=== PATIENT | male | born 1935 | race Caucasian/White ===

== ENCOUNTER 2019-10-24 12:55 | Emergency (ER) | payer MEDICARE, OTHER ==
[2019-10-24] MEDS ORDERED: Sodium Chloride 0.9% 10 ML Syringe FLUSH PRN (13:14)
--- NOTE | 2019-10-24 13:58 | EDM.PDOC ---
ED HPI GENERAL MEDICAL PROBLEM - General Chief Complaint: General Stated Complaint: ER Time Seen by Provider: 10/24/19 13:15 Source of Information: Reports: Patient History Limitations: Reports: No Limitations - History of Present Illness INITIAL COMMENTS - FREE TEXT/NARRATIVE: Pt. presents to ER with complaints of L lower extremity swelling, from his ankle to his buttock. 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 He states that he has been experiencing swelling to the area and occasional fever for the past 2 days. Denies any falls or trauma to the extremity since the surgery. He is currently anticoagulated with xaralto. Pt. denies any history of chest pain or shortness of breath. No nausea, vomiting , or diarrhea. Denies any edema to the opposite lower extremity. The incision was covered with a dressing that has not yet been removed since surgery. Plan is to remove this at a clinic appointment next week. Onset: Today Onset Date: 10/21/19 Location: Reports: Lower Extremity, Left Quality: Reports: Pressure Treatments CALL CENTER CONSULTANT: Reports: Other Medication(s) Other Treatments CALL CENTER CONSULTANT: Sleepy Eye Left Knee Pain Score (Numeric/FACES): 2 - Related Data Allergies Allergy/AdvReac Type Severity Reaction Status Date / Time amoxicillin [From Augmentin] Allergy Cannot Verified 10/24/19 13:48 Remember aspirin Allergy Other Verified 10/24/19 13:48 clavulanic acid Allergy Cannot Verified 10/24/19 13:48 [From Augmentin] Remember erythromycin base Allergy Cannot Verified 10/24/19 13:48 Remember latex Allergy Other Verified 10/24/19 13:48 Sulfa (Sulfonamide Allergy Cannot Verified 10/24/19 13:48 Antibiotics) Remember sulfamethoxazole Allergy Numbness Verified 10/24/19 13:48 [From Septra] trimethoprim [From Septra] Allergy Numbness Verified 10/24/19 13:48 environmental Allergy Cannot Uncoded 10/24/19 13:48 Remember Home Meds: Home Meds Albuterol [Ventolin HFA] 2 puff INH Q4H PRN 09/19/16 [History] Fish Oil/Burton-3 Fatty Acids [Fish Oil] 1,000 mg PO DAILY 09/19/16 [History] Glucosam/Chondr/Collagn/Hyalur [Glucosamine & Chondroitin Cap] 1 cap PO TID 04/27 [History] Ibuprofen 200 mg PO TID PRN 09/19/16 [History] NIFEdipine [Nifedipine ER] 30 mg PO ASDIRECTED 09/19/16 [History] Nitroglycerin [Nitrostat] 0.4 mg SL Q5M 09/19/16 [History] Terbutaline Sulfate 5 mg PO TID 09/19/16 [History] Acetaminophen [Tylenol Arthritis] 650 mg PO Q8H 10/24/19 [History] Acetaminophen/HYDROcodone [Sleepy Eye 325-5 MG] 1 tab PO Q6H PRN 10/24/19 [History] Albuterol/Ipratropium [Combivent Respimat] 6 puff IH Q24H 10/24/19 [History] Celecoxib 100 mg PO BID 10/24/19 [History] Denosumab [Prolia] 60 mg SUBCUT Q6M 10/24/19 [History] Docusate Sodium [Colace] 100 mg PO DAILY 10/24/19 [History] Fluticasone Propionate [Flonase] 16 gm NS BID 10/24/19 [History] Furosemide [Lasix] 20 mg PO DAILY 10/24/19 [History] Gabapentin [Neurontin] 100 mg PO TID 10/24/19 [History] Oxybutynin 5 mg PO BID 10/24/19 [History] Rivaroxaban [Xarelto] 10 mg PO DAILY 10/24/19 [History] Sennosides/Docusate Sodium [Senna-Docusate Sodium Tablet] 1 each PO BID [History] Triamcinolone Acetonide [Kenalog 0.1% Crm] 1 g TOP BID PRN 10/24/19 [History] Past Medical History HEENT History: Reports: Allergic Rhinitis, Cataract Other HEENT History: LEUKOPLAKIA OF ORAL CAVITY Cardiovascular History: Reports: Angina, High Cholesterol, Hypertension Respiratory History: Reports: Asthma Other Respiratory History: PULMONARY NODULE Gastrointestinal History: Reports: Colon Polyp, Diverticulosis, Gastritis, Hemorrhoids Other Gastrointestinal History: INGUINAL HERNIA Other Genitourinary History: ERECTILE DYSFUNCTION Musculoskeletal History: Reports: Osteoarthritis Other Musculoskeletal History: 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 HX OF MASTOIDITIS. 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 Endocrine/Metabolic History: Reports: Other (See Below) Other Endocrine/Metabolic History: PREDIABETIC Oncologic (Cancer) History: Reports: Prostate Other Dermatologic History: LIPOMA - Past Surgical History GI Surgical History: Reports: Colonoscopy Other GI Surgeries/Procedures: HX POLYPS ED ROS GENERAL - Review of Systems Review Of Systems: See Below Constitutional: Reports: No Symptoms HEENT: Reports: No Symptoms Respiratory: Reports: No Symptoms Endocrine: Reports: No Symptoms GI/Abdominal: Reports: No Symptoms : Reports: No Symptoms Musculoskeletal: Reports: Leg Pain, Joint Pain, Joint Swelling Skin: Reports: Change in Color Neurological: Reports: No Symptoms Psychiatric: Reports: No Symptoms Hematologic/Lymphatic: Reports: No Symptoms Immunologic: Reports: No Symptoms ED EXAM, GENERAL - Physical Exam Exam: See Below Exam Limited By: No Limitations General Appearance: Alert, WD/WN, No Apparent Distress Head: Atraumatic, Normocephalic Neck: Normal Inspection, Supple, Non-Tender, Full Range of Motion Respiratory/Chest: No Respiratory Distress, Lungs Clear, Normal Breath Sounds, No Accessory Muscle Use, Chest Non-Tender Cardiovascular: Normal Peripheral Pulses, Regular Rate, Rhythm, No Edema, No Gallop, No JVD, No Murmur, No Rub GI/Abdominal: Normal Bowel Sounds, Soft, Non-Tender, No Organomegaly, No Distention, No Abnormal Bruit, No Mass (Male) Exam: Deferred Rectal (Males) Exam: Deferred Back Exam: Normal Inspection, Full Range of Motion Extremities: Normal Inspection, Normal Capillary Refill, Joint Swelling, Leg Pain, Increased Warmth, Redness Neurological: Alert, Oriented, CN II-XII Intact, Normal Cognition, Normal Gait, Normal Reflexes, No Motor/Sensory Deficits Psychiatric: Normal Affect, Normal Mood Skin Exam: Warm, Dry, Intact, Normal Color, No Rash Lymphatic: No Adenopathy Course - Vital Signs Last Recorded V/S: Last Vital Signs Temp 37.2 C 10/24/19 14:44 Pulse 63 10/24/19 14:44 Resp 18 10/24/19 14:44 BP 125/60 10/24/19 14:44 Pulse Ox 95 10/24/19 14:44 - Orders/Labs/Meds Orders: Active Orders 24 hr Category Date Time Status CULTURE BLOOD [BC] Stat Lab 10/24/19 13:53 Received CULTURE BLOOD [BC] Stat Lab 10/24/19 14:00 Received Sodium Chloride 0.9% [Saline Flush] Med 10/24/19 13:14 Active 10 ml FLUSH ASDIRECTED PRN Blood Culture x2 Reflex Set [OM.PC] Stat Oth 10/24/19 13:15 Ordered Peripheral IV Insertion Adult [OM.PC] Routine Oth 10/24/19 13:15 Ordered Medication Orders Sodium Chloride (Saline Flush) 10 ml FLUSH ASDIRECTED PRN PRN Reason: Keep Vein Open Labs: Laboratory Tests 10/24/19 10/24/19 10/24/19 Range/Units 13:53 13:53 13:53 WBC 4.3 (4.0-10.0) x10^3/uL RBC 3.29 L (4.5-6.0) x10^6/uL Hgb 9.9 L D (14.0-18.0) g/dL Hct 30.0 L (40.0-52.0) % MCV 91.2 (78.0-93.0) fL MCH 30.1 (26.0-32.0) pg MCHC 33.0 (32.0-36.0) g/dL RDW Coeff of Sanju 13.7 (10.0-15.0) % Plt Count 244 (130-400) x10^3/uL Neut % (Auto) 64.0 (50.0-80.0) % Lymph % (Auto) 17.4 L (25.0-50.0) % [place] % (Auto) 8.5 (2.0-11.0) % Eos % (Auto) 9.6 H (0.0-4.0) % Baso % (Auto) 0.5 (0.2-1.2) % PT 10.3 (10.0-12.8) SEC INR 0.9 L (2.0-3.5) D-Dimer, Quantitative (<=0.58) mg/LFEU Sodium 140 (136-145) mmol/L Potassium 4.4 (3.5-5.1) mmol/L Chloride 104 (98-107) mmol/L Carbon Dioxide 28 (21-32) mmol/L Anion Gap 12.4 (10-20) mmol/L BUN 20 H (7-18) mg/dL Creatinine 0.9 (0.70-1.30) mg/dL Est Cr Clr Drug Dosing 68.26 mL/min Estimated GFR (MDRD) > 60 Glucose 126 H (74-106) mg/dL Lactic Acid (0.4-2.0) mmol/L Calcium 8.6 (8.5-10.1) mg/dL Corrected Calcium 9.64 (8.5-10.1) mg/dL Magnesium 2.0 (1.8-2.4) mg/dL Total Bilirubin 0.7 (0.2-1.0) mg/dL AST 24 (15-37) U/L ALT 29 (16-63) U/L Alkaline Phosphatase 73 (46-116) U/L C-Reactive Protein 5.3 H (<=0.9) mg/dL Total Protein 6.3 L (6.4-8.2) g/dL Albumin 2.7 L (3.4-5.0) g/dL Globulin 3.6 Albumin/Globulin Ratio 0.75 10/24/19 10/24/19 Range/Units 13:53 13:53 WBC (4.0-10.0) x10^3/uL RBC (4.5-6.0) x10^6/uL Hgb (14.0-18.0) g/dL Hct (40.0-52.0) % MCV (78.0-93.0) fL MCH (26.0-32.0) pg MCHC (32.0-36.0) g/dL RDW Coeff of Sanju (10.0-15.0) % Plt Count (130-400) x10^3/uL Neut % (Auto) (50.0-80.0) % Lymph % (Auto) (25.0-50.0) % [place] % (Auto) (2.0-11.0) % Eos % (Auto) (0.0-4.0) % Baso % (Auto) (0.2-1.2) % PT (10.0-12.8) SEC INR (2.0-3.5) D-Dimer, Quantitative 2.15 H (<=0.58) mg/LFEU Sodium (136-145) mmol/L Potassium (3.5-5.1) mmol/L Chloride (98-107) mmol/L Carbon Dioxide (21-32) mmol/L Anion Gap (10-20) mmol/L BUN (7-18) mg/dL Creatinine (0.70-1.30) mg/dL Est Cr Clr Drug Dosing mL/min Estimated GFR (MDRD) Glucose (74-106) mg/dL Lactic Acid 1.4 (0.4-2.0) mmol/L Calcium (8.5-10.1) mg/dL Corrected Calcium (8.5-10.1) mg/dL Magnesium (1.8-2.4) mg/dL Total Bilirubin (0.2-1.0) mg/dL AST (15-37) U/L ALT (16-63) U/L Alkaline Phosphatase (46-116) U/L C-Reactive Protein (<=0.9) mg/dL Total Protein (6.4-8.2) g/dL Albumin (3.4-5.0) g/dL Globulin Albumin/Globulin Ratio Meds: Medications Generic Name Dose Route Start Last Admin Trade Name Freq PRN Reason Stop Dose Admin Sodium Chloride 10 ml 10/24/19 13:14 Saline Flush FLUSH ASDIRECTED PRN Keep Vein Open Departure - Departure Time of Disposition: 14:53 Disposition: DC/Tfer to [facility] Clinical Impression: Post op infection - Discharge Information Referrals: Joanie Roche DO [Primary Care Provider] - Forms: ED Department Discharge Sepsis Event Note - Evaluation Sepsis Screening Result: No Definite Risk - Focused Exam Vital Signs: Vital Signs Temp Pulse Resp BP Pulse Ox 10/24/19 14:44 37.2 C 63 18 125/60 95 10/24/19 13:15 37.3 C 59 L 18 122/56 L 94 L Date Exam was Performed: 10/24/19 Time Exam was Performed: 14:50 - My Orders Last 24 Hours: My Active Orders 10/24/19 13:14 Sodium Chloride 0.9% [Saline Flush] 10 ml FLUSH ASDIRECTED PRN 10/24/19 13:15 Blood Culture x2 Reflex Set [OM.PC] Stat Peripheral IV Insertion Adult [OM.PC] Routine 10/24/19 13:53 CULTURE BLOOD [BC] Stat 10/24/19 14:00 CULTURE BLOOD [BC] Stat - Assessment/Plan Last 24 Hours: My Active Orders 10/24/19 13:14 Sodium Chloride 0.9% [Saline Flush] 10 ml FLUSH ASDIRECTED PRN 10/24/19 13:15 Blood Culture x2 Reflex Set [OM.PC] Stat Peripheral IV Insertion Adult [OM.PC] Routine 10/24/19 13:53 CULTURE BLOOD [BC] Stat 10/24/19 14:00 CULTURE BLOOD [BC] Stat Plan: Travel to [facility] ER in [place]. You will need an ultrasound of the leg and will be evaluated by Dr. Watkins.
[2019-10-24 14:28] LABS: ANION GAP 12.4 mmol/L (10-20); CHLORIDE,CL 104 mmol/L (98-107); SODIUM,NA 140 mmol/L (136-145)
[2019-10-24 14:45] VITALS: BP 125/60; PULSE 63
== END 2019-10-24 15:10 | disposition short-term general hospital (02) ==
LOC: VM.ED 12:55
DX: T81.49XA Infection following a procedure, other surgical site, initial encounter (principal); I10 Essential (primary) hypertension; E78.00 Pure hypercholesterolemia, unspecified; J45.909 Unspecified asthma, uncomplicated; M19.90 Unspecified osteoarthritis, unspecified site; Z86.73 Personal history of transient ischemic attack (TIA), and cerebral infarction without residual deficits; Z96.652 Presence of left artificial knee joint; Z79.899 Other long term (current) drug therapy; Z79.01 Long term (current) use of anticoagulants; Z88.8 Allergy status to other drugs, medicaments and biological substances; Z88.1 Allergy status to other antibiotic agents; Z88.2 Allergy status to sulfonamides; Z91.040 Latex allergy status; Z91.048 Other nonmedicinal substance allergy status
CPT/HCPCS: 36415; 80053; 83605; 83735; 85025; 85379; 85610; 86140; 87040; 99284; 99284-GF

== ENCOUNTER 2022-06-13 08:20 | Day surgery (SDC) | payer MEDICARE, OTHER ==
[~2022-06-13 08:20] MED LIST: Lactated Ringers 1,000 ML IV SCH; Sodium Chloride 0.9% 10 ML Syringe FLUSH PRN
[2022-06-13] MEDS ORDERED: Propofol 200 MG/20 ML SDV ONE ×2 (09:29→10:57)
[2022-06-13] MEDS ORDERED: fentaNYL 100 MCG/2 ML SDV ONE (09:30)
[2022-06-13 11:49] VITALS: BP 173/65; PULSE 51
== END 2022-06-13 12:53 | disposition home or self-care (01) ==
LOC: VM.SDS 08:20
PROVIDERS: ATTEND Family Medicine
DX: Z12.11 Encounter for screening for malignant neoplasm of colon (principal); D12.0 Benign neoplasm of cecum; K57.30 Diverticulosis of large intestine without perforation or abscess without bleeding; K59.09 Other constipation; I10 Essential (primary) hypertension; J45.909 Unspecified asthma, uncomplicated; E78.5 Hyperlipidemia, unspecified; E11.9 Type 2 diabetes mellitus without complications; D64.9 Anemia, unspecified; Z98.890 Other specified postprocedural states; Z86.010 Personal history of colon polyps; Z96.652 Presence of left artificial knee joint; Z79.899 Other long term (current) drug therapy; Z88.2 Allergy status to sulfonamides; Z91.040 Latex allergy status; Z88.6 Allergy status to analgesic agent; Z88.1 Allergy status to other antibiotic agents; Z88.0 Allergy status to penicillin
CPT/HCPCS: 00811; J2704; J3010; J7120

== ENCOUNTER 2023-01-11 08:57 | Emergency (ER) | payer MEDICARE ==
[2023-01-11 18:16] VITALS: BP 170/72; PULSE 58
== END 2023-01-11 09:55 | disposition home or self-care (01) ==
LOC: VM.ED 08:57
DX: L25.9 Unspecified contact dermatitis, unspecified cause (principal); E78.00 Pure hypercholesterolemia, unspecified; I10 Essential (primary) hypertension; J45.909 Unspecified asthma, uncomplicated; Z86.73 Personal history of transient ischemic attack (TIA), and cerebral infarction without residual deficits; Z88.0 Allergy status to penicillin; Z88.8 Allergy status to other drugs, medicaments and biological substances; Z91.040 Latex allergy status; Z88.2 Allergy status to sulfonamides
CPT/HCPCS: 99283

== ENCOUNTER 2024-04-12 13:36 | Emergency (ER) | payer MEDICARE ==
[2024-04-12] MEDS ORDERED: cefTRIAXone 1 GM, Lidocaine 1% 2.1 ML IM ONE (14:13)
[2024-04-12] MEDS: cefTRIAXone 1 GM, Lidocaine 1% 2.1 ML IM ONE (14:28)
[2024-04-12 15:55] VITALS: BP 162/76; PULSE 55
== END 2024-04-12 14:42 | disposition home or self-care (01) ==
LOC: VM.ED 13:36
DX: L03.116 Cellulitis of left lower limb (principal); I10 Essential (primary) hypertension; J45.909 Unspecified asthma, uncomplicated; Z86.73 Personal history of transient ischemic attack (TIA), and cerebral infarction without residual deficits; Z95.1 Presence of aortocoronary bypass graft; Z79.899 Other long term (current) drug therapy; Z88.2 Allergy status to sulfonamides; Z88.8 Allergy status to other drugs, medicaments and biological substances; Z88.1 Allergy status to other antibiotic agents; Z91.040 Latex allergy status; Z88.6 Allergy status to analgesic agent
CPT/HCPCS: 96372; 99283; 99284; J0696; J3490

== ENCOUNTER 2024-04-29 16:46 | Inpatient (IN) | payer MEDICARE ==
[2024-04-29 17:27] LABS: BASOPHILS PERCENT AUTO 0.2 % (0.2-1.2); EOSINOPHILS ABSOLUTE AUTO 0.2 x10^3/uL (0.0-0.5); EOSINOPHILS PERCENT AUTO 1.4 % (0.0-4.0); HEMATOCRIT 35.8 % (40.0-52.0); HEMOGLOBIN 12.2 g/dL (14.0-18.0); IMMATURE GRAN ABSOLUTE AUTO 0.02 x10^3/uL (0.00-0.07); LYMPHOCYTES ABSOLUTE AUTO 0.6 x10^3/uL (1.0-4.8); LYMPHOCYTES PERCENT AUTO 5.5 % (25.0-50.0); MEAN CORPUSCULAR HEMOGLOBIN 32.4 pg (26.0-32.0); MEAN CORPUSCULAR HGB CONC 34.1 g/dL (32.0-36.0); MEAN CORPUSCULAR VOLUME 95.2 fL (78.0-93.0); MONOCYTES ABSOLUTE AUTO 0.6 x10^3/uL (0.0-0.8); MONOCYTES PERCENT AUTO 5.3 % (2.0-11.0); NEUTROPHILS ABSOLUTE AUTO 9.2 x10^3/uL (1.8-7.7); NEUTROPHILS PERCENT AUTO 87.4 % (50.0-80.0); RED BLOOD CELL COUNT 3.76 x10^6/uL (4.5-6.0); WHITE BLOOD CELL COUNT,WBC 10.5 x10^3/uL (4.0-10.0)
[2024-04-29 17:41] LABS: PLATELET COUNT,PLT 167 x10^3/uL (130-400)
[2024-04-29 17:44] LABS: A/G RATIO 0.97; ALBUMIN 3.2 g/dL (3.4-5.0); BILIRUBIN TOTAL 0.9 mg/dL (0.2-1.0); CREATININE 1.1 mg/dL (0.70-1.30); EST CRCL DRUG DOSING (CG) 55.01 mL/min; POTASSIUM,K 3.9 mmol/L (3.5-5.1); PROTEIN TOTAL,TP 6.5 g/dL (6.4-8.2)
[2024-04-29 17:45] LABS: ANION GAP 11.9 mmol/L (5-15)
[2024-04-29 17:58] LABS: APPEARANCE,URINE CLEAR (CLEAR); BILIRUBIN,URINE NEGATIVE (NEGATIVE); COLOR,URINE LIGHT YELLOW (YELLOW); GLUCOSE,URINE 500 mg/dL (NEGATIVE); KETONES,URINE NEGATIVE (NEGATIVE); LEUKOCYTE ESTERASE,URINE NEGATIVE (NEGATIVE); NITRITE,URINE NEGATIVE (NEGATIVE); OCCULT BLOOD,URINE TRACE-INTACT (NEGATIVE); PROTEIN,URINE NEGATIVE (NEGATIVE); UROBILINOGEN,URINE 0.2 EU/dL (0.2)
[2024-04-29 18:00] LABS: BACTERIA,URINE OCCASIONAL /HPF (NOT SEEN); MUCUS,URINE OCCASIONAL /LPF (NOT SEEN); RBC,URINE 0-5 /HPF (NOT SEEN); WBC,URINE 0-5 /HPF (NOT SEEN)
[2024-04-29] MEDS: Iopamidol 612 MG/ML 100 ML Bottle IVPUSH ONE (18:29)
[2024-04-29] MEDS ORDERED: Nitroglycerin 0.4 MG Tab.SL SL PRN (21:00)
[2024-04-29] MEDS: Acetaminophen 650 MG Tab.ER PO SCH (23:33)
[2024-04-29] MEDS: Sodium Chloride 0.9% 1,000 ML IV SCH (23:35)
[2024-04-30] MEDS: LORazepam 0.5 MG Tab PO PRN (00:19)
[2024-04-30] MEDS: Heparin Sodium 5,000 Units/ML Vial SUBCUT SCH (03:47)
[2024-04-30] MEDS: Magnesium Hydroxide 400 MG/5 ML Susp 30 ML Cup PO ONE (03:47)
[2024-04-30] MEDS: Bisacodyl 10 MG Supp RECTAL ONE (03:47)
[2024-04-30] MEDS: Furosemide 20 MG Tab PO SCH (03:48)
[2024-04-30] MEDS: NIFEdipine 30 MG Tab.ER PO SCH (03:48)
[2024-04-30] MEDS: Gabapentin 100 MG Cap PO SCH (03:48)
[2024-04-30] MEDS: Oxybutynin 5 MG Tab PO SCH (03:48)
[2024-04-30 07:17] LABS: BASOPHILS PERCENT AUTO 0.3 % (0.2-1.2); EOSINOPHILS ABSOLUTE AUTO 0.1 x10^3/uL (0.0-0.5); EOSINOPHILS PERCENT AUTO 1.3 % (0.0-4.0); HEMATOCRIT 34.3 % (40.0-52.0); HEMOGLOBIN 11.9 g/dL (14.0-18.0); IMMATURE GRAN ABSOLUTE AUTO 0.01 x10^3/uL (0.00-0.07); LYMPHOCYTES ABSOLUTE AUTO 0.7 x10^3/uL (1.0-4.8); LYMPHOCYTES PERCENT AUTO 9.8 % (25.0-50.0); MEAN CORPUSCULAR HEMOGLOBIN 32.8 pg (26.0-32.0); MEAN CORPUSCULAR HGB CONC 34.7 g/dL (32.0-36.0); MEAN CORPUSCULAR VOLUME 94.5 fL (78.0-93.0); MONOCYTES ABSOLUTE AUTO 0.5 x10^3/uL (0.0-0.8); MONOCYTES PERCENT AUTO 6.7 % (2.0-11.0); NEUTROPHILS ABSOLUTE AUTO 6.1 x10^3/uL (1.8-7.7); NEUTROPHILS PERCENT AUTO 81.8 % (50.0-80.0); PLATELET COUNT,PLT 150 x10^3/uL (130-400); RED BLOOD CELL COUNT 3.63 x10^6/uL (4.5-6.0); WHITE BLOOD CELL COUNT,WBC 7.4 x10^3/uL (4.0-10.0)
[2024-04-30 07:35] LABS: A/G RATIO 0.82; ALBUMIN 3.1 g/dL (3.4-5.0); BILIRUBIN TOTAL 0.7 mg/dL (0.2-1.0); C-REACTIVE PROTEIN 6.15 mg/dL (<=0.50); CALCIUM 8.6 mg/dL (8.5-10.1); EST CRCL DRUG DOSING (CG) 60.51 mL/min; MAGNESIUM 1.8 mg/dL (1.8-2.4); POTASSIUM,K 3.8 mmol/L (3.5-5.1); PROTEIN TOTAL,TP 6.9 g/dL (6.4-8.2)
[2024-04-30 07:38] LABS: ANION GAP 13.8 mmol/L (5-15)
[2024-04-30] MEDS: Furosemide 40 MG Tab PO SCH (09:04)
[2024-04-30] MEDS: Docusate Sodium 100 MG Cap PO SCH (09:10)
[2024-04-30] MEDS: Empagliflozin 10 MG Tab PO SCH (09:10)
[2024-04-30] MEDS ORDERED: Enoxaparin 40 MG/0.4 ML Syringe SUBCUT SCH (12:00)
[2024-04-30] MEDS ORDERED: Albuterol/Ipratropium 3.0-0.5 MG/3 ML Neb Soln NEB PRN (13:15)
[2024-04-30] MEDS ORDERED: Polyethylene Glycol 3350 Powder 17 GM Packet PO SCH (13:15)
[2024-04-30] MEDS: Sennosides/Docusate Sodium 50-8.6 MG Tab PO SCH (20:57)
[2024-04-30] MEDS: Formoterol/Mometasone 200-5 MCG 13 GM Inhaler INH SCH (20:57)
[2024-04-30] MEDS ORDERED: Gabapentin 100 MG Cap PO SCH (21:00)
[2024-04-30] MEDS: Nystatin Crm 30 GM Tube TOP SCH (21:00)
[2024-05-01] MEDS: Acetaminophen 325 MG Tab PO PRN (04:50)
[2024-05-01 08:17] LABS: BASOPHILS PERCENT AUTO 0.4 % (0.2-1.2); EOSINOPHILS ABSOLUTE AUTO 0.1 x10^3/uL (0.0-0.5); EOSINOPHILS PERCENT AUTO 1.8 % (0.0-4.0); HEMATOCRIT 35.5 % (40.0-52.0); HEMOGLOBIN 12.2 g/dL (14.0-18.0); IMMATURE GRAN ABSOLUTE AUTO 0.01 x10^3/uL (0.00-0.07); LYMPHOCYTES PERCENT AUTO 18.9 % (25.0-50.0); MEAN CORPUSCULAR HEMOGLOBIN 32.6 pg (26.0-32.0); MEAN CORPUSCULAR HGB CONC 34.4 g/dL (32.0-36.0); MEAN CORPUSCULAR VOLUME 94.9 fL (78.0-93.0); MONOCYTES ABSOLUTE AUTO 0.6 x10^3/uL (0.0-0.8); MONOCYTES PERCENT AUTO 10.1 % (2.0-11.0); NEUTROPHILS ABSOLUTE AUTO 3.7 x10^3/uL (1.8-7.7); NEUTROPHILS PERCENT AUTO 68.6 % (50.0-80.0); PLATELET COUNT,PLT 158 x10^3/uL (130-400); RED BLOOD CELL COUNT 3.74 x10^6/uL (4.5-6.0); WHITE BLOOD CELL COUNT,WBC 5.4 x10^3/uL (4.0-10.0)
[2024-05-01 08:39] LABS: A/G RATIO 0.81; ALBUMIN 2.9 g/dL (3.4-5.0); BILIRUBIN TOTAL 0.5 mg/dL (0.2-1.0); CALCIUM 8.6 mg/dL (8.5-10.1); CREATININE 0.9 mg/dL (0.70-1.30); EST CRCL DRUG DOSING (CG) 67.23 mL/min; POTASSIUM,K 3.1 mmol/L (3.5-5.1); PROTEIN TOTAL,TP 6.5 g/dL (6.4-8.2)
[2024-05-01 08:44] LABS: ANION GAP 17.1 mmol/L (5-15)
[2024-05-01] MEDS: Potassium Chloride 20 MEQ Tab.ER PO ONE (10:58)
[2024-05-02 07:56] LABS: BASOPHILS PERCENT AUTO 0.4 % (0.2-1.2); EOSINOPHILS ABSOLUTE AUTO 0.2 x10^3/uL (0.0-0.5); EOSINOPHILS PERCENT AUTO 4.5 % (0.0-4.0); HEMATOCRIT 34.2 % (40.0-52.0); HEMOGLOBIN 11.8 g/dL (14.0-18.0); IMMATURE GRAN ABSOLUTE AUTO 0.01 x10^3/uL (0.00-0.07); LYMPHOCYTES ABSOLUTE AUTO 1.2 x10^3/uL (1.0-4.8); LYMPHOCYTES PERCENT AUTO 23.4 % (25.0-50.0); MEAN CORPUSCULAR HEMOGLOBIN 32.2 pg (26.0-32.0); MEAN CORPUSCULAR HGB CONC 34.5 g/dL (32.0-36.0); MEAN CORPUSCULAR VOLUME 93.2 fL (78.0-93.0); MONOCYTES ABSOLUTE AUTO 0.5 x10^3/uL (0.0-0.8); NEUTROPHILS PERCENT AUTO 60.5 % (50.0-80.0); PLATELET COUNT,PLT 160 x10^3/uL (130-400); RED BLOOD CELL COUNT 3.67 x10^6/uL (4.5-6.0); WHITE BLOOD CELL COUNT,WBC 4.9 x10^3/uL (4.0-10.0)
[2024-05-02 08:13] LABS: A/G RATIO 0.85; ALBUMIN 2.9 g/dL (3.4-5.0); BILIRUBIN TOTAL 0.5 mg/dL (0.2-1.0); CALCIUM 8.2 mg/dL (8.5-10.1); CREATININE 0.9 mg/dL (0.70-1.30); EST CRCL DRUG DOSING (CG) 67.23 mL/min; PROTEIN TOTAL,TP 6.3 g/dL (6.4-8.2)
[2024-05-02 08:14] LABS: ANION GAP 13.8 mmol/L (5-15)
[2024-05-02 08:16] LABS: POTASSIUM,K 2.8 mmol/L (3.5-5.1)
[2024-05-02] MEDS: Potassium Chloride Riders 20 MEQ in Premix Bag 1 BAG IV ONE (11:29)
[2024-05-02] MEDS: Potassium Chloride 20 MEQ Tab.ER PO ONE (11:30)
[2024-05-03] MEDS ORDERED: Flumazenil 0.1 MG/ML 5 ML MDV IVPUSH PRN (03:27)
[2024-05-03] MEDS: LORazepam 2 MG/ML SDV IVPUSH ONE (03:38)
[2024-05-03 07:07] LABS: BASOPHILS PERCENT AUTO 0.4 % (0.2-1.2); EOSINOPHILS ABSOLUTE AUTO 0.3 x10^3/uL (0.0-0.5); EOSINOPHILS PERCENT AUTO 5.6 % (0.0-4.0); HEMATOCRIT 34.7 % (40.0-52.0); HEMOGLOBIN 12.1 g/dL (14.0-18.0); IMMATURE GRAN ABSOLUTE AUTO 0.04 x10^3/uL (0.00-0.07); LYMPHOCYTES ABSOLUTE AUTO 1.2 x10^3/uL (1.0-4.8); LYMPHOCYTES PERCENT AUTO 23.7 % (25.0-50.0); MEAN CORPUSCULAR HEMOGLOBIN 32.4 pg (26.0-32.0); MEAN CORPUSCULAR HGB CONC 34.9 g/dL (32.0-36.0); MEAN CORPUSCULAR VOLUME 92.8 fL (78.0-93.0); MONOCYTES ABSOLUTE AUTO 0.6 x10^3/uL (0.0-0.8); NEUTROPHILS PERCENT AUTO 58.5 % (50.0-80.0); PLATELET COUNT,PLT 166 x10^3/uL (130-400); RED BLOOD CELL COUNT 3.74 x10^6/uL (4.5-6.0); WHITE BLOOD CELL COUNT,WBC 5.2 x10^3/uL (4.0-10.0)
[2024-05-03 07:26] LABS: A/G RATIO 0.81; BILIRUBIN TOTAL 0.5 mg/dL (0.2-1.0); CALCIUM 8.5 mg/dL (8.5-10.1); CREATININE 0.9 mg/dL (0.70-1.30); EST CRCL DRUG DOSING (CG) 67.23 mL/min; MAGNESIUM 1.9 mg/dL (1.8-2.4); POTASSIUM,K 3.1 mmol/L (3.5-5.1); PROTEIN TOTAL,TP 6.7 g/dL (6.4-8.2)
[2024-05-03 07:27] LABS: ANION GAP 15.1 mmol/L (5-15)
[2024-05-03] MEDS: QUEtiapine 25 MG Tab PO ONE (07:35)
[2024-05-03] MEDS: Potassium Chloride 20 MEQ Tab.ER PO SCH (08:31)
[2024-05-03] MEDS ORDERED: Glucagon,Human Recombinant 1 MG Vial IM PRN (11:27)
[2024-05-03] MEDS ORDERED: 50% Dextrose in Water 50 ML Syringe IVPUSH PRN (11:27)
[2024-05-03] MEDS: Insulin Lispro 100 Units/ML 3 ML Vial SUBCUT SCH (12:10)
[2024-05-03] MEDS: QUEtiapine 25 MG Tab PO SCH (20:24)
[2024-05-04 10:21] LABS: HEMATOCRIT 38.2 % (40.0-52.0); HEMOGLOBIN 13.3 g/dL (14.0-18.0); MEAN CORPUSCULAR HEMOGLOBIN 32.5 pg (26.0-32.0); MEAN CORPUSCULAR HGB CONC 34.8 g/dL (32.0-36.0); MEAN CORPUSCULAR VOLUME 93.4 fL (78.0-93.0); RED BLOOD CELL COUNT 4.09 x10^6/uL (4.5-6.0); WHITE BLOOD CELL COUNT,WBC 6.5 x10^3/uL (4.0-10.0)
[2024-05-04 10:32] LABS: CALCIUM 8.5 mg/dL (8.5-10.1); EST CRCL DRUG DOSING (CG) 60.51 mL/min; POTASSIUM,K 3.4 mmol/L (3.5-5.1)
[2024-05-04 10:37] LABS: ANION GAP 12.4 mmol/L (5-15)
[2024-05-04 16:21] VITALS: BP 138/72; PULSE 68
== END 2024-05-04 16:22 | disposition swing bed (61) | DRG 641 ==
LOC: VM.ED 16:46 → VM.MS 19:35
PROVIDERS: ADMIT Family Medicine; ATTEND Nurse Practitioner Family
DX: E86.0 Dehydration (principal); E44.1 Mild protein-calorie malnutrition; I20.1 Angina pectoris with documented spasm; E78.00 Pure hypercholesterolemia, unspecified; R53.83 Other fatigue; Z79.899 Other long term (current) drug therapy; R53.1 Weakness; Z91.048 Other nonmedicinal substance allergy status; K59.00 Constipation, unspecified; I10 Essential (primary) hypertension; J45.909 Unspecified asthma, uncomplicated; M19.90 Unspecified osteoarthritis, unspecified site; R10.84 Generalized abdominal pain; E87.6 Hypokalemia; E78.2 Mixed hyperlipidemia; K29.50 Unspecified chronic gastritis without bleeding; S81.802D Unspecified open wound, left lower leg, subsequent encounter; Z88.0 Allergy status to penicillin; Z88.2 Allergy status to sulfonamides; Z88.1 Allergy status to other antibiotic agents; Z88.6 Allergy status to analgesic agent; Z85.46 Personal history of malignant neoplasm of prostate; Z85.89 Personal history of malignant neoplasm of other organs and systems; Z91.040 Latex allergy status; Z87.891 Personal history of nicotine dependence; Z86.73 Personal history of transient ischemic attack (TIA), and cerebral infarction without residual deficits; Z86.010 Personal history of colon polyps; Z96.659 Presence of unspecified artificial knee joint; Z95.5 Presence of coronary angioplasty implant and graft; Z98.890 Other specified postprocedural states; Z68.30 Body mass index [BMI] 30.0-30.9, adult
CPT/HCPCS: 36415; 70450; 74176; 74177; 80048; 80053; 81001; 82140; 82947; 83605; 83690; 83735; 83880; 84443; 85025; 85027; 86140; 97110-GP; 97116-GP; 97162-GP; 97165-GO; 97535-GO; 99232; 99284; 99285; A9270-GY; C1758; J1644; J1815-GY; J2060; J3480; J7030; Q9967

== ENCOUNTER 2024-05-04 14:24 | Inpatient (IN) | payer MEDICARE ==
[2024-05-04] MEDS ORDERED: Glucagon,Human Recombinant 1 MG Vial IM PRN ×3 (17:17→17:21)
[2024-05-04] MEDS ORDERED: Nitroglycerin 0.4 MG Tab.SL SL PRN ×2 (17:17→17:21)
[2024-05-04] MEDS ORDERED: Flumazenil 0.1 MG/ML 5 ML MDV IVPUSH PRN (17:17)
[2024-05-04] MEDS ORDERED: 50% Dextrose in Water 50 ML Syringe IVPUSH PRN ×2 (17:17→17:21)
[2024-05-04] MEDS ORDERED: GLUCAGON HCL 1 MG IM PRN (17:21)
[2024-05-04] MEDS ORDERED: 50% Dextrose in Water 50 ML Syringe IV PRN (17:21)
[2024-05-04] MEDS ORDERED: Flumazenil 0.1 MG/ML 5 ML MDV IV PRN (17:21)
[2024-05-04] MEDS ORDERED: Polyethylene Glycol 3350 Powder 17 GM Packet PO PRN (17:21)
[2024-05-04] MEDS ORDERED: Non-Formulary Medication 1 Each (Albuterol/Ipratropium [Combivent Respimat] 4 GM Inhaler) PO PRN (17:21)
[2024-05-04] MEDS ORDERED: Take Home: LORazepam 0.5 MG Tab, 2 Tab Pack PO PRN (17:21)
[2024-05-04] MEDS: Insulin Lispro 100 Units/ML 3 ML Vial SUBCUT SCH (17:56)
[2024-05-04] MEDS ORDERED: Insulin Lispro 100 Units/ML 3 ML Vial SUBCUT SCH (18:00)
[2024-05-04] MEDS: Acetaminophen/HYDROcodone 325-5 MG Tab PO PRN (19:41)
[2024-05-04] MEDS: Sennosides/Docusate Sodium 50-8.6 MG Tab PO SCH (20:45)
[2024-05-04] MEDS: Gabapentin 100 MG Cap PO SCH (20:45)
[2024-05-04] MEDS: QUEtiapine 25 MG Tab PO SCH (20:46)
[2024-05-04] MEDS: Nystatin Crm 30 GM Tube TOP SCH (20:51)
[2024-05-04] MEDS: Formoterol/Mometasone 200-5 MCG 13 GM Inhaler INH SCH (20:51)
[2024-05-04] MEDS: Heparin Sodium 5,000 Units/ML Vial SUBCUT SCH (20:54)
[2024-05-04] MEDS ORDERED: Gabapentin 100 MG Cap PO SCH (21:00)
[2024-05-04] MEDS ORDERED: Sennosides 8.6 MG Tab PO SCH (21:00)
[2024-05-04] MEDS ORDERED: Formoterol/Mometasone 200-5 MCG 13 GM Inhaler INH SCH (21:00)
[2024-05-04] MEDS ORDERED: Furosemide 20 MG Tab PO SCH (21:00)
[2024-05-04] MEDS ORDERED: QUEtiapine 25 MG Tab PO SCH (21:00)
[2024-05-05] MEDS: Acetaminophen 325 MG Tab PO PRN (00:02)
[2024-05-05 06:58] LABS: HEMATOCRIT 39.6 % (40.0-52.0); HEMOGLOBIN 13.6 g/dL (14.0-18.0); MEAN CORPUSCULAR HEMOGLOBIN 32.2 pg (26.0-32.0); MEAN CORPUSCULAR HGB CONC 34.3 g/dL (32.0-36.0); MEAN CORPUSCULAR VOLUME 93.8 fL (78.0-93.0); RED BLOOD CELL COUNT 4.22 x10^6/uL (4.5-6.0); WHITE BLOOD CELL COUNT,WBC 5.2 x10^3/uL (4.0-10.0)
[2024-05-05] MEDS: Potassium Chloride 20 MEQ Tab.ER PO SCH (08:40)
[2024-05-05] MEDS: NIFEdipine 30 MG Tab.ER PO SCH (08:41)
[2024-05-05] MEDS: Furosemide 40 MG Tab PO SCH (08:41)
[2024-05-05] MEDS: Docusate Sodium 100 MG Cap PO SCH (08:41)
[2024-05-05] MEDS ORDERED: Potassium Chloride 20 MEQ Tab.ER PO SCH (09:00)
[2024-05-05] MEDS ORDERED: Docusate Sodium 100 MG Cap PO SCH (09:00)
[2024-05-05] MEDS ORDERED: NIFEdipine 30 MG Tab.ER PO SCH (09:00)
[2024-05-05] MEDS: Albuterol/Ipratropium 3.0-0.5 MG/3 ML Neb Soln NEB PRN (09:18)
[2024-05-05] MEDS: Miconazole 2% Top Powder 45 GM Container TOP SCH (20:15)
[2024-05-06] MEDS: LORazepam 0.5 MG Tab PO PRN (01:51)
[2024-05-06 20:07] LABS: BASOPHILS PERCENT AUTO 0.2 % (0.2-1.2); EOSINOPHILS ABSOLUTE AUTO 0.1 x10^3/uL (0.0-0.5); EOSINOPHILS PERCENT AUTO 0.5 % (0.0-4.0); HEMATOCRIT 38.7 % (40.0-52.0); HEMOGLOBIN 13.3 g/dL (14.0-18.0); IMMATURE GRAN ABSOLUTE AUTO 0.07 x10^3/uL (0.00-0.07); LYMPHOCYTES ABSOLUTE AUTO 0.9 x10^3/uL (1.0-4.8); LYMPHOCYTES PERCENT AUTO 9.5 % (25.0-50.0); MEAN CORPUSCULAR HEMOGLOBIN 32.5 pg (26.0-32.0); MEAN CORPUSCULAR HGB CONC 34.4 g/dL (32.0-36.0); MEAN CORPUSCULAR VOLUME 94.6 fL (78.0-93.0); MONOCYTES ABSOLUTE AUTO 0.8 x10^3/uL (0.0-0.8); MONOCYTES PERCENT AUTO 8.8 % (2.0-11.0); NEUTROPHILS ABSOLUTE AUTO 7.7 x10^3/uL (1.8-7.7); NEUTROPHILS PERCENT AUTO 80.3 % (50.0-80.0); PLATELET COUNT,PLT 245 x10^3/uL (130-400); RED BLOOD CELL COUNT 4.09 x10^6/uL (4.5-6.0); WHITE BLOOD CELL COUNT,WBC 9.6 x10^3/uL (4.0-10.0)
[2024-05-06 20:26] LABS: LACTIC ACID 1.7 mmol/L (0.4-2.0)
[2024-05-06 20:33] LABS: A/G RATIO 0.63; ALBUMIN 2.9 g/dL (3.4-5.0); BILIRUBIN TOTAL 0.7 mg/dL (0.2-1.0); CALCIUM 8.6 mg/dL (8.5-10.1); EST CRCL DRUG DOSING (CG) 60.51 mL/min; POTASSIUM,K 3.8 mmol/L (3.5-5.1); PROTEIN TOTAL,TP 7.5 g/dL (6.4-8.2)
[2024-05-06 20:35] LABS: ANION GAP 14.8 mmol/L (5-15)
[2024-05-06 20:39] LABS: APPEARANCE,URINE TURBID (CLEAR); BILIRUBIN,URINE NEGATIVE (NEGATIVE); COLOR,URINE YELLOW (YELLOW); GLUCOSE,URINE 500 mg/dL (NEGATIVE); KETONES,URINE NEGATIVE (NEGATIVE); LEUKOCYTE ESTERASE,URINE MODERATE (NEGATIVE); NITRITE,URINE POSITIVE (NEGATIVE); OCCULT BLOOD,URINE TRACE-INTACT (NEGATIVE); PH,URINE 5.5 (5.0-8.0); PROTEIN,URINE TRACE mg/dL (NEGATIVE); UROBILINOGEN,URINE 0.2 EU/dL (0.2)
[2024-05-06 20:49] LABS: BACTERIA,URINE MANY /HPF (NOT SEEN); MUCUS,URINE OCCASIONAL /LPF (NOT SEEN); WBC,URINE >100 /HPF (NOT SEEN)
[2024-05-06] MEDS: cefTRIAXone 2 GM Vial IVPUSH SCH (21:00)
[2024-05-06] MEDS: Sodium Chloride 0.9% 1,000 ML IV SCH (23:59)
[2024-05-07] MEDS: Mineral Oil 133 ML BOTTLE RECTAL ONE (08:54)
[2024-05-07] MEDS: Doxycycline Monohydrate 100 MG Cap PO SCH ×2 (17:58→18:36)
[2024-05-07] MEDS: Lactulose Soln 10 GM/15 ML 30 ML UD Cup PO SCH (18:35)
[2024-05-08 08:15] LABS: BASOPHILS PERCENT AUTO 0.5 % (0.2-1.2); EOSINOPHILS ABSOLUTE AUTO 0.2 x10^3/uL (0.0-0.5); EOSINOPHILS PERCENT AUTO 3.8 % (0.0-4.0); HEMATOCRIT 32.2 % (40.0-52.0); IMMATURE GRAN ABSOLUTE AUTO 0.04 x10^3/uL (0.00-0.07); LYMPHOCYTES ABSOLUTE AUTO 0.9 x10^3/uL (1.0-4.8); LYMPHOCYTES PERCENT AUTO 15.5 % (25.0-50.0); MEAN CORPUSCULAR HEMOGLOBIN 32.1 pg (26.0-32.0); MEAN CORPUSCULAR HGB CONC 34.2 g/dL (32.0-36.0); MEAN CORPUSCULAR VOLUME 93.9 fL (78.0-93.0); MONOCYTES ABSOLUTE AUTO 0.4 x10^3/uL (0.0-0.8); MONOCYTES PERCENT AUTO 7.1 % (2.0-11.0); NEUTROPHILS ABSOLUTE AUTO 4.4 x10^3/uL (1.8-7.7); NEUTROPHILS PERCENT AUTO 72.4 % (50.0-80.0); PLATELET COUNT,PLT 212 x10^3/uL (130-400); RED BLOOD CELL COUNT 3.43 x10^6/uL (4.5-6.0); WHITE BLOOD CELL COUNT,WBC 6.1 x10^3/uL (4.0-10.0)
[2024-05-08 08:49] LABS: A/G RATIO 0.5; ALBUMIN 2.2 g/dL (3.4-5.0); BILIRUBIN TOTAL 0.5 mg/dL (0.2-1.0); CALCIUM 7.8 mg/dL (8.5-10.1); CREATININE 0.8 mg/dL (0.70-1.30); EST CRCL DRUG DOSING (CG) 75.64 mL/min; PROTEIN TOTAL,TP 6.6 g/dL (6.4-8.2)
[2024-05-08 08:51] LABS: LACTIC ACID 0.8 mmol/L (0.4-2.0)
[2024-05-08 08:52] LABS: ANION GAP 12.8 mmol/L (5-15)
[2024-05-08 08:54] LABS: POTASSIUM,K 2.8 mmol/L (3.5-5.1)
[2024-05-08] MEDS ORDERED: Potassium Chloride 20 MEQ Tab.ER PO SCH (09:01)
[2024-05-08] MEDS ORDERED: Sodium Chloride 0.9% 10 ML Syringe FLUSH PRN (09:12)
[2024-05-08] MEDS: Potassium Chloride Riders 20 MEQ in Premix Bag 1 BAG IV SCH (10:11)
[2024-05-08 15:19] VITALS: BP 162/77; PULSE 66
[2024-05-12] MEDS ORDERED: Miconazole 2% Top Powder 45 GM Container TOP PRN (15:00)
== END 2024-05-08 15:05 | disposition short-term general hospital (02) | DRG 948 ==
LOC: VM.MS 16:22
PROVIDERS: ADMIT Nurse Practitioner Family; ATTEND Nurse Practitioner Family
DX: R53.1 Weakness (principal); N39.0 Urinary tract infection, site not specified; L03.113 Cellulitis of right upper limb; T82.390A Other mechanical complication of aortic (bifurcation) graft (replacement), initial encounter; C79.82 Secondary malignant neoplasm of genital organs; E46 Unspecified protein-calorie malnutrition; E87.6 Hypokalemia; I10 Essential (primary) hypertension; K59.09 Other constipation; J44.9 Chronic obstructive pulmonary disease, unspecified; I83.018 Varicose veins of right lower extremity with ulcer other part of lower leg; I83.028 Varicose veins of left lower extremity with ulcer other part of lower leg; E86.0 Dehydration; E78.2 Mixed hyperlipidemia; S81.802D Unspecified open wound, left lower leg, subsequent encounter; R09.02 Hypoxemia; Z88.6 Allergy status to analgesic agent; Z88.0 Allergy status to penicillin; Z88.1 Allergy status to other antibiotic agents; Z88.2 Allergy status to sulfonamides; Z91.040 Latex allergy status; Z79.01 Long term (current) use of anticoagulants; Z79.899 Other long term (current) drug therapy; Z98.890 Other specified postprocedural states
CPT/HCPCS: 36415; 70551; 71045; 80053; 81001; 82947; 83605; 83880; 84145; 85025; 85027; 87040; 87086; 87088; 87186; 97110-GP; 97116-GP; 97530-GP; 97535-GO; A9270-GY; J0696; J1644; J1815-GY; J3480; J7030; J7620-GY